=== PATIENT | male | born 1980 | race Caucasian/White ===

== ENCOUNTER 2022-11-06 20:14 | Emergency (ER) | payer MEDICAID, MEDICARE ==
[~2022-11-06] VITALS: Ht 170.2 cm; Wt 85.0 kg
[2022-11-06 20:18] VITALS: O2SAT 98
[2022-11-06] MEDS ORDERED: ACETAMINOPHEN 325MG TABLET PO ONE (21:45)
[2022-11-06] MEDS ORDERED: LORAZEPAM 2MG/ML CPJ IM ONE (21:45)
[2022-11-06 22:00] LABS: HEMATOCRIT. 39.5 % (42.0-52.0); HEMOGLOBIN. 13.5 g/dL (14.0-18.0); MEAN CORPUSCULAR HEMOGLOBIN 30.9 pg (28.0-32.0); MEAN CORPUSCULAR VOLUME 90.2 fL (80.0-94.0); PLATELET 369 x1000/uL (130-400); RED BLOOD CELL COUNT 4.38 mill/uL (4.7-6.1); RED CELL DISTRIBUTION WIDTH 13.5 % (11.6-14.6)
[2022-11-06 22:08] LABS: CHLORIDE 106 mEq/L (98-107)
[2022-11-06 22:16] LABS: ETHANOL BLOOD < 10 mg/dL (-10)
[2022-11-06 22:40] LABS: PLATELET ESTIMATE NORMAL
[2022-11-07 01:21] LABS: *AMPHETAMINES SCREEN URINE NEGATIVE (NEGATIVE); *BARBITURATES SCREEN URINE NEGATIVE (NEGATIVE); *BENZODIAZEPINES SCREEN URINE NEGATIVE (NEGATIVE); *COCAINE SCREEN URINE NEGATIVE (NEGATIVE); CANNABINOID URINE SCREEN PRESUMTIVE POSITIVE (NEGATIVE); METHADONE URINE SCREEN NEGATIVE (NEGATIVE); OPIATES URINE SCREEN NEGATIVE (NEGATIVE); PHENCYCLIDINE URINE SCREEN NEGATIVE (NEGATIVE)
[2022-11-07] MEDS ORDERED: ACET-2708 MT (01:49)
[2022-11-07 03:08] VITALS: BP 121/79; PULSE 98; RESP 19; TEMP 98.7
[2022-11-07] MEDS ORDERED: IBUP-2029 MT (04:46)
[2022-11-08] MEDS ORDERED: IBUP-2029 MT (23:58)
== END 2022-11-07 03:10 | disposition home or self-care (01) ==
LOC: ER 20:14
DX: R07.89 Other chest pain (principal); Z98.890 Other specified postprocedural states; Y04.0XXA Assault by unarmed brawl or fight, initial encounter; Y93.89 Activity, other specified; Y92.89 Other specified places as the place of occurrence of the external cause; Y99.8 Other external cause status; I10 Essential (primary) hypertension
CPT/HCPCS: 36415; 71045; 80048; 80305; 80307; 80320; 80329; 85025; 99284; G0480

== ENCOUNTER 2022-11-07 02:41 | Emergency (ER) | payer MEDICARE, MEDICAID ==
[~2022-11-07 02:41] MED LIST: ACET-2708 MT
[2022-11-07] MEDS ORDERED: IBUP-2029 MT (04:46)
[2022-11-08] MEDS ORDERED: IBUP-2029 MT (23:58)
== END 2022-11-07 05:45 | disposition home or self-care (01) ==
LOC: ER 02:41
DX: G89.29 Other chronic pain (principal); M54.9 Dorsalgia, unspecified; F17.200 Nicotine dependence, unspecified, uncomplicated; I10 Essential (primary) hypertension; Z71.51 Drug abuse counseling and surveillance of drug abuser; Z98.890 Other specified postprocedural states
CPT/HCPCS: 99281

== ENCOUNTER 2022-11-08 16:54 | Emergency (ER) | payer MEDICARE, MEDICAID ==
[~2022-11-08] VITALS: Ht 165.1 cm; Wt 88.5 kg
[~2022-11-08 16:54] MED LIST changes: +IBUP-2029 MT
[2022-11-08 17:08] VITALS: O2SAT 95
[2022-11-08 17:34] LABS: BASOPHILS % 0.2 % (0.0-2.0); EOSINOPHILS % 0.1 % (0.0-5.0); HEMATOCRIT. 38.4 % (42.0-52.0); HEMOGLOBIN. 13.3 g/dL (14.0-18.0); LYMPHOCYTES % 11.8 % (20.0-50.0); MEAN CORPUSCULAR HEMOGLOBIN 31.1 pg (28.0-32.0); MEAN CORPUSCULAR VOLUME 89.9 fL (80.0-94.0); MEAN PLATELET VOLUME 7.8 fl (7.4-10.4); MONOCYTES % 8.3 % (2.0-8.0); NEUTROPHILS % 79.6 % (40.0-76.0); PLATELET 406 x1000/uL (130-400); RED BLOOD CELL COUNT 4.27 mill/uL (4.7-6.1); RED CELL DISTRIBUTION WIDTH 13.8 % (11.6-14.6)
[2022-11-08 17:40] LABS: CHLORIDE 105 mEq/L (98-107)
[2022-11-08] MEDS ORDERED: IBUP-2029 MT (23:58)
[2022-11-09] MEDS ORDERED: KETOROLAC 30MG/ML VIAL IM ONE
[2022-11-09 00:12] VITALS: BP 176/89; PULSE 68; RESP 14; TEMP 98.3
== END 2022-11-09 00:17 | disposition home or self-care (01) ==
LOC: ER 16:54
DX: M79.10 Myalgia, unspecified site (principal); F32.9 Major depressive disorder, single episode, unspecified; I10 Essential (primary) hypertension; Z87.440 Personal history of urinary (tract) infections
CPT/HCPCS: 99283; 80053; 85025; 36415; J1885; 96372